=== PATIENT | female | born 1990 | race Hispanic/Latino ===

== ENCOUNTER 2019-01-20 04:40 | Inpatient (IN) | payer MEDICAID, OTHER, SELFPAY ==
[2019-01-20 05:21] VITALS: BMI 31.8
[2019-01-20] MEDS ORDERED: Acetaminophen 500 MG TAB PO PRN (06:30)
[2019-01-20] MEDS ORDERED: Lactated Ringer's 1,000 ML IV SCH (06:30)
[2019-01-20] MEDS ORDERED: Butorphanol Tartrate 1 MG/ML VIAL SLOW IVP PRN (06:30)
[2019-01-20] MEDS ORDERED: Ondansetron PF 4 MG/2 ML Vial IVP PRN ×2 (06:31→10:07)
[2019-01-20] MEDS ORDERED: Promethazine HCl 25 MG/ML VIAL IM PRN ×2 (06:31→10:07)
[2019-01-20] MEDS ORDERED: Ibuprofen 800 MG TAB PO PRN (06:33)
[2019-01-20 06:34] LABS: Hemoglobin 11.8 g/dL (12.0-16.0); Mean Corpuscular HGB CONC 35.1 g/dL (32.0-36.0); Mean Corpuscular Hemoglobin 28.2 pg (27.0-31.0); Mean Corpuscular Volume 80.4 fL (78.0-98.0); Platelet Count 156 thou/uL (130-400); RBC Distribution Width 13.3 % (11.5-14.5); Red Blood Cell (RBC) Count 4.17 mill/uL (4.20-5.40); White Blood Cell (WBC) Count 9.5 thou/uL (4.8-10.8)
[2019-01-20] MEDS ORDERED: HYDROcodone/Acetaminophen 5/325 mg Tablet PO PRN ×4 (06:34→10:07)
[2019-01-20] MEDS ORDERED: Misoprostol 200 MCG TAB PR PRN (06:35)
[2019-01-20] MEDS ORDERED: Fentanyl 4 mcg/Bup 0.1% Cadd 0 ML ONE (06:41)
[2019-01-20] MEDS ORDERED: Methylergonovine 0.2 MG/ML VIAL IM SCH (06:45)
[2019-01-20] MEDS ORDERED: NS / Oxytocin 40 units/1000ml 1,000 ML IV SCH ×2 (06:45→10:07)
[2019-01-20] MEDS ORDERED: Carboprost 250 MCG/ML AMP IM ONE (06:45)
[2019-01-20] MEDS ORDERED: NS w/ Oxytocin 10 units 500 ML IVPB SCH (06:45)
[2019-01-20] MEDS ORDERED: Lidocaine 1% (PF) 30 ML VIAL NERVE BLCK SCH (06:45)
[2019-01-20 06:47] LABS: Syphilis Antibody Nonreactive (Nonreactive); Syphilis Antibody Index 0.03 S/CO (<1.00 Non-Reactive)
[2019-01-20 06:48] LABS: HBSAg Index 0.27 S/CO (0-0.99); Hep B Surf Ag Non-Reactive S/CO (NonReactive)
--- NOTE | 2019-01-20 08:01 | PDOC.LDHP ---
Labor and Delivery H&P Chief complaint: contractions HPI: 28 y/o at 39 w and 0/7 days presents in spontaneous labor today. Current gestational age (weeks): 39 Due date: 01/27/19 Grav: 4 Para: 3 Current complications: none Abnormal US findings: No Current medications: pre-yanet vitamins Allergies/Adverse Reactions: Allergies Allergy/AdvReac Type Severity Reaction Status Date / Time No Known Drug Allergies Allergy Verified 01/20/19 05:09 Social history: none - Physical Exam Vital signs reviewed and normal: yes General: NAD, resting Heart: RRR Lungs: CTAB Abdomen: NTTP Extremeties: no edema FHT: category 1 - Assessment L&D Assessment: term patient in labor - Plan Plan: admit to L&D, labor augmentation if indicated
[2019-01-20] MEDS ORDERED: Varicella virus, LIVE 0.5 ML VIAL SC ONE (10:07)
[2019-01-20] MEDS ORDERED: Methylergonovine 0.2 MG/ML VIAL IM PRN (10:07)
[2019-01-20] MEDS ORDERED: Lanolin Ointment 7 GM TUBE TOP PRN (10:07)
[2019-01-20] MEDS ORDERED: Zolpidem Tartrate 5 MG TAB PO PRN (10:07)
[2019-01-20] MEDS ORDERED: diphenhydrAMINE 25 MG CAP PO PRN (10:07)
[2019-01-20] MEDS ORDERED: Benzocaine-Menthol 82.5 ML CAN TOP PRN (10:07)
[2019-01-20] MEDS ORDERED: Preparation H Ointment 28 GM TUBE PR PRN (10:07)
[2019-01-20] MEDS ORDERED: Bisacodyl 10 MG SUPP PR PRN (10:07)
[2019-01-20] MEDS ORDERED: Measles/Mumps/Rubella 10 MCG/0.5 ML VIAL SC ONE (10:07)
[2019-01-20] MEDS ORDERED: Adacel (T-DAP) 0.5 ML SYRINGE IM ONE (10:07)
[2019-01-20] MEDS ORDERED: Milk Of Magnesia 30 ML UDCUP PO PRN (10:07)
[2019-01-20] MEDS ORDERED: Docusate Calcium (SURFAK) 240 MG CAP PO SCH (10:30)
[2019-01-20] MEDS ORDERED: Prenatal Vitamin 1 TAB PO SCH (10:30)
[2019-01-20] MEDS ORDERED: Ferrous Sulfate 325 MG TAB PO SCH (10:30)
[2019-01-20] MEDS: Ferrous Sulfate 325 MG TAB PO SCH (11:10)
[2019-01-20] MEDS: Ibuprofen 800 MG TAB PO SCH ×2 (15:28→23:48)
[2019-01-20] MEDS: Docusate Calcium (SURFAK) 240 MG CAP PO SCH (23:48)
[2019-01-21 06:14] LABS: Hemoglobin 10.5 g/dL (12.0-16.0); Mean Corpuscular HGB CONC 35.2 g/dL (32.0-36.0); Mean Corpuscular Hemoglobin 28.2 pg (27.0-31.0); Mean Corpuscular Volume 80.1 fL (78.0-98.0); Mean Platelet Volume 11.1 fL (7.4-10.4); Platelet Count 130 thou/uL (130-400); RBC Distribution Width 13.4 % (11.5-14.5); Red Blood Cell (RBC) Count 3.74 mill/uL (4.20-5.40); White Blood Cell (WBC) Count 9.7 thou/uL (4.8-10.8)
[2019-01-21] MEDS: Docusate Calcium (SURFAK) 240 MG CAP PO SCH ×2 (08:11→21:46)
[2019-01-21] MEDS: Prenatal Vitamin 1 TAB PO SCH (08:11)
[2019-01-21] MEDS: Ferrous Sulfate 325 MG TAB PO SCH ×2 (08:11→18:04)
[2019-01-21] MEDS: Ibuprofen 800 MG TAB PO SCH ×3 (08:11→21:46)
--- NOTE | 2019-01-21 20:40 | PDOC.PP ---
Post Progress Note Post Day #: 1 PO intake tolerated: yes Flatus: yes Ambulation: yes Vital Signs (12 hours) Temp Pulse Resp BP Pulse Ox 01/21/19 19:34 98.3 F 51 L 18 129/62 97 Weight Weight 174 lb - Physical Examination General: NAD Cardiovascular: no m/r/g, RRR Respiratory: clear to auscultation bilaterally Abdominal: + bowel sounds, lochia, no distention Extremities: negative homans (B) Neurological: no gross focal deficits Psychiatric: A&Ox3, normal affect (DC home in am) Result Diagrams: 01/21/19 05:37 Additional Labs: Post Labs Blood Type O POSITIVE 01/20/19 09:00 Hep Bs Antigen Non-Reactive S/CO (NonReactive) 01/20/19 05:59
[2019-01-22] MEDS: Ibuprofen 800 MG TAB PO SCH (05:46)
--- NOTE | 2019-01-22 06:20 | DN ---
DATE OF PROCEDURE: 01/20/2019 TIME OF DELIVERY: 0738 hours, central daylight savings time. PREOPERATIVE DIAGNOSIS: Intrauterine at 39 weeks and 0 days with a spontaneous onset of labor. POSTOPERATIVE DIAGNOSIS: Intrauterine at 39 weeks and 0 days with a spontaneous onset of labor. PROCEDURE PERFORMED: Spontaneous vaginal delivery over intact perineum without epidural. FINDINGS: A viable male infant weighing 3181 g or 7 pounds 0 ounces. Apgars 8 and 9. QUANTITATIVE BLOOD LOSS: 71 mL. COMPLICATIONS: None. PROCEDURE IN DETAIL: The patient presented to [facility] where she was admitted to the labor and delivery service. The patient underwent a normal and uneventful labor with normal cervical dilatation until she was found to be completely dilated. She was then allowed to push and was able to bring the baby down and delivered the baby in a vertex presentation without difficulties. Once the head delivered in occiput anterior position, the shoulders followed spontaneously along with the rest of the baby's body. Once out the baby's mouth and nose were bulb suctioned. The cord was clamped and cut and baby was handed to waiting attendants. Cord blood was collected. Gentle fundal massage was performed and the placenta delivered intact without problems. Hemostasis was assured. Quantitative blood loss was calculated. Inspection of the cervix, vaginal vault, and perineum did not reveal any lacerations needing suturing. Once again, hemostasis was within normal limits and the patient was allowed to recover in the labor and delivery room. Baby went to nursery. Job ID: [id number]
[2019-01-22 07:45] VITALS: BP 123/73; TEMP 98.1
[2019-01-22] MEDS: Ferrous Sulfate 325 MG TAB PO SCH (08:13)
[2019-01-22] MEDS: Prenatal Vitamin 1 TAB PO SCH (08:16)
[2019-01-22] MEDS: Docusate Calcium (SURFAK) 240 MG CAP PO SCH (08:17)
== END 2019-01-22 12:15 | disposition home or self-care (01) | DRG 807 ==
LOC: L&D/OP 04:40 → L&D 05:54 → 3SW 09:39
PROVIDERS: ADMIT Obstetrics & Gynecology; ATTEND Obstetrics & Gynecology
PROC: 10E0XZZ Delivery of Products of Conception, External Approach (ICD-10-PCS; principal; 2019-01-20)
DX: O80 Encounter for full-term uncomplicated delivery (principal); Z37.0 Single live birth; Z3A.39 39 weeks gestation of pregnancy
CPT/HCPCS: 36415; 85027; 86780; 86850; 86900; 86901; 87340; 99285